=== PATIENT | male | born 1985 | race Two or more races ===

== ENCOUNTER 2017-09-01 22:59 | Emergency (ER) | payer SELFPAY ==
[~2017-09-01] VITALS: Ht 185.4 cm; Wt 99.8 kg
--- NOTE | 2017-09-01 23:30 | NUR ---
PT PRESENTED TO THE ER WITH A C/O LT UPPER BACK PAIN THAT RADIATES TO LT ARM. PT IS ALSO C/O NAUSEA. PT AMBULATED TO BED #2 AND IS AWAITING EVAL BY .
[2017-09-02] MEDS ORDERED: HYDROCODONE/APAP 5/325MG 1 EACH TABLET ONE (00:13)
[2017-09-02] MEDS ORDERED: ASPIRIN 325 MG TABLET ONE (00:13)
[2017-09-02 00:27] LABS: BASOPHILS % (AUTO) 0.3 % (0.0-2.0); EOSINOPHILS # (AUTO) 0.1 /CMM (0.0-0.7); EOSINOPHILS % (AUTO) 1.3 % (0.0-6.0); HEMATOCRIT 44 % (39-51); HEMOGLOBIN 15.1 g/dL (13.5-17.5); LYMPHOCYTES # (AUTO) 2.7 /CMM (0.8-4.8); LYMPHOCYTES % (AUTO) 29.4 % (20.0-44.0); MEAN CORPUSCULAR HEMOGLOBIN 30 PG (26.0-33.0); MEAN CORPUSCULAR HGB CONC 34 g/dl (31.0-36.0); MEAN CORPUSCULAR VOLUME 87 fL (80-96); MONOCYTES # (AUTO) 0.7 /CMM (0.1-1.30); MONOCYTES % (AUTO) 7.4 % (2.0-12.0); NEUTROPHILS # (AUTO) 5.6 /CMM (1.8-8.9); NEUTROPHILS % (AUTO) 61.6 % (43.0-81.0); PLATELET COUNT (AUTO) 271 /CMM (150-450); RDW COEFFICIENT OF VARIATION 13.1 (11.5-15.0); RED BLOOD CELL COUNT(AUTO) 5.12 MIL/uL (4.5-6.0); WHITE BLOOD COUNT (AUTO) 9.1 K/uL (4.3-11.0)
[2017-09-02] MEDS ORDERED: HYDROCODONE/APAP 5/325MG 1 EACH TABLET PO ONE (00:30)
[2017-09-02] MEDS ORDERED: ASPIRIN 325 MG TABLET PO ONE (00:30)
--- NOTE | 2017-09-02 00:36 | NUR ---
cxr in progress at the bedside.
[2017-09-02 00:39] LABS: CALCIUM, SERUM 9.6 mg/dL (8.5-10.1); CARBON DIOXIDE 27 mmol/L (21-32); CHLORIDE 106 mmol/L (98-107); CREATININE 0.9 mg/dL (0.6-1.3); GLUCOSE 137 mg/dL (74-106); POTASSIUM 3.8 mmol/L (3.5-5.1); SODIUM SERUM 143 mmol/L (136-145); UREA NITROGEN, BLOOD 15 mg/dL (7-18)
--- NOTE | 2017-09-02 00:40 | NUR ---
PT REC'D A WARM BLANKET. PT'S FRIENDS X2 AT THE BEDSIDE.
[2017-09-02 00:45] LABS: TROPONIN I < 0.017 ng/mL (0.00-0.056)
--- NOTE | 2017-09-02 01:14 | NUR ---
PT IS DRINKING WATER AND TOLERATING PO WELL.
--- NOTE | 2017-09-02 01:50 | NUR ---
IV removed. Catheter intact and site benign. Pressure and 4x4 applied to site. No bleeding noted.Patient discharged to home in stable condition. Written and verbal after care instructions given. Patient verbalizes understanding of instruction AND RX. PT WAS INSTRUCTED NOT TO DRIVE WHILE TAKING FLEXERIL. VSS. PT AMBULATED OUT WITH A STEADY GAIT.
[2017-09-02 01:51] VITALS: BP 140/88
== END 2017-09-02 01:54 | disposition home or self-care (01) ==
LOC: ER 23:02
DX: M54.6 Pain in thoracic spine (principal); R07.89 Other chest pain; M79.669 Pain in unspecified lower leg
CPT/HCPCS: 36415; 71010-TC; 80048-TC; 84484-TC; 85025-TC; 85378-TC; A4606; Z7610